=== PATIENT | male | born 1980 | race Caucasian/White ===

== ENCOUNTER 2017-02-04 15:19 | Emergency (ER) | payer MEDICAID ==
[~2017-02-04] VITALS: Ht 175.3 cm; Wt 68.7 kg
[~2017-02-04 15:19] MED LIST: HYDR-3240 PO; LITH600C PO; PANT20TA3 PO; SERT100T PO; ZOLP10TA PO
[2017-02-04 16:34] LABS: BLOOD UREA NITROGEN 12 mg/dL (7-18)
[2017-02-04 16:39] LABS: ASPARTATE AMINO TRANSFERASE 24 U/L (15-37)
[2017-02-04 18:18] VITALS: BP 128/68
== END 2017-02-04 18:20 ==
LOC: ED 16:26
DX: M79.661 Pain in right lower leg (principal); M25.561 Pain in right knee; M79.89 Other specified soft tissue disorders; F31.9 Bipolar disorder, unspecified; F90.9 Attention-deficit hyperactivity disorder, unspecified type; Z87.11 Personal history of peptic ulcer disease; Z90.89 Acquired absence of other organs; Z98.890 Other specified postprocedural states
CPT/HCPCS: 36415; 80053; 85025; 93005; 99285

== ENCOUNTER 2017-02-06 03:27 | Emergency (ER) | payer MEDICAID ==
[~2017-02-06] VITALS: Ht 170.2 cm; Wt 60.0 kg
[2017-02-06 05:39] VITALS: BP 134/75
== END 2017-02-06 05:40 | disposition home or self-care (01) ==
LOC: ED 04:34
DX: M79.661 Pain in right lower leg (principal); F90.9 Attention-deficit hyperactivity disorder, unspecified type
CPT/HCPCS: 99284

== ENCOUNTER 2017-04-15 19:24 | Emergency (ER) | payer MEDICAID ==
[~2017-04-15] VITALS: Ht 175.3 cm; Wt 67.5 kg
[2017-04-15 19:36] VITALS: BP 119/74
== END 2017-04-15 21:17 | disposition home or self-care (01) ==
LOC: ED 20:27
DX: S63.634A Sprain of interphalangeal joint of right ring finger, initial encounter (principal); Z86.718 Personal history of other venous thrombosis and embolism; F17.210 Nicotine dependence, cigarettes, uncomplicated; W22.8XXA Striking against or struck by other objects, initial encounter; Y93.89 Activity, other specified; Y92.009 Unspecified place in unspecified non-institutional (private) residence as the place of occurrence of the external cause; Y99.9 Unspecified external cause status
CPT/HCPCS: 29125; 99284

== ENCOUNTER 2017-07-03 20:40 | Emergency (ER) | payer MEDICAID ==
[~2017-07-03] VITALS: Ht 175.3 cm; Wt 66.0 kg
[2017-07-03 20:43] VITALS: BP 105/70
[2017-07-03] MEDS ORDERED: BACITRACIN ZINC OINT 500U/GM, 0.9 GM ONE (21:53)
== END 2017-07-03 22:12 | disposition home or self-care (01) ==
LOC: ED 22:00
DX: S61.211A Laceration without foreign body of left index finger without damage to nail, initial encounter (principal); F31.9 Bipolar disorder, unspecified; F90.9 Attention-deficit hyperactivity disorder, unspecified type; Z88.0 Allergy status to penicillin; W26.0XXA Contact with knife, initial encounter; Y93.89 Activity, other specified; Y92.098 Other place in other non-institutional residence as the place of occurrence of the external cause; Y99.8 Other external cause status
CPT/HCPCS: 12001; 99283

== ENCOUNTER 2017-07-10 14:52 | Emergency (ER) | payer MEDICAID ==
[~2017-07-10] VITALS: Ht 175.3 cm; Wt 66.7 kg
[2017-07-10 14:55] VITALS: BP 120/74
== END 2017-07-10 15:53 | disposition home or self-care (01) ==
LOC: ED 15:50
DX: S61.211A Laceration without foreign body of left index finger without damage to nail, initial encounter (principal); L03.90 Cellulitis, unspecified; F90.9 Attention-deficit hyperactivity disorder, unspecified type; Z86.718 Personal history of other venous thrombosis and embolism
CPT/HCPCS: 99283

== ENCOUNTER 2017-07-13 16:59 | Emergency (ER) | payer MEDICAID ==
[~2017-07-13] VITALS: Ht 175.3 cm; Wt 66.9 kg
[2017-07-13 17:08] VITALS: BP 126/78
[2017-07-13] MEDS ORDERED: ONDANSETRON ODT 4 MG ONE (17:23)
[2017-07-13] MEDS ORDERED: ONDANSETRON ODT 8 MG PO ONE (17:30)
== END 2017-07-13 17:44 | disposition home or self-care (01) ==
LOC: ED 17:20
DX: L03.012 Cellulitis of left finger (principal); F90.9 Attention-deficit hyperactivity disorder, unspecified type; Z86.718 Personal history of other venous thrombosis and embolism; Z88.0 Allergy status to penicillin; F17.200 Nicotine dependence, unspecified, uncomplicated
CPT/HCPCS: 29130; 99283; Q0162

== ENCOUNTER 2017-07-23 14:34 | Emergency (ER) | payer MEDICAID ==
[~2017-07-23] VITALS: Ht 175.3 cm; Wt 67.6 kg
[2017-07-23] MEDS ORDERED: ONDANSETRON ODT 4 MG ONE (15:20)
[2017-07-23] MEDS ORDERED: KETOROLAC 30 MG/1 ML IVPush ONE (15:30)
[2017-07-23] MEDS ORDERED: SODIUM CHLORIDE FLUSH 10ML SYR IVF ONE (15:30)
[2017-07-23] MEDS ORDERED: ONDANSETRON ODT 4 MG PO ONE (15:30)
[2017-07-23] MEDS ORDERED: DIPHENHYDRAMINE 50 MG/ML, 1ML IVPush ONE (15:30)
[2017-07-23] MEDS ORDERED: SODIUM CHLORIDE 0.9% 1,000ML IVBOLUS ONE (15:30)
[2017-07-23 16:02] LABS: ASPARTATE AMINO TRANSFERASE 18 U/L (15-37); BLOOD UREA NITROGEN 11 mg/dL (7-18)
[2017-07-23 16:08] LABS: HEMATOCRIT 51.8 % (39.2-51.8); HEMOGLOBIN 17.6 g/dL (13.7-18.0); WHITE BLOOD COUNT 8.3 x10^3/uL (3.4-10)
[2017-07-23] MEDS ORDERED: KETOROLAC 30 MG/1 ML ONE (17:03)
[2017-07-23] MEDS ORDERED: DIPHENHYDRAMINE 50 MG/ML, 1ML ONE (17:03)
[2017-07-23 18:10] VITALS: BP 128/76
== END 2017-07-23 18:49 | disposition home or self-care (01) ==
LOC: ED 18:37
DX: G44.209 Tension-type headache, unspecified, not intractable (principal); J01.01 Acute recurrent maxillary sinusitis; F31.9 Bipolar disorder, unspecified; F90.9 Attention-deficit hyperactivity disorder, unspecified type; Z90.89 Acquired absence of other organs
CPT/HCPCS: 36415; 80053; 81003; 85025; 93005; 96361; 96374; 96375; 99285; J1200; J1885; J7030; Q0162

== ENCOUNTER 2017-07-30 01:51 | Emergency (ER) | payer MEDICAID ==
[~2017-07-30] VITALS: Ht 175.3 cm; Wt 67.8 kg
[2017-07-30] MEDS ORDERED: ALBU5SOL6 INH (02:27)
[2017-07-30] MEDS ORDERED: LEVO500T47 PO (02:27)
[2017-07-30 02:31] LABS: HEMATOCRIT 47.5 % (39.2-51.8); HEMOGLOBIN 16.2 g/dL (13.7-18.0); WHITE BLOOD COUNT 7.5 x10^3/uL (3.4-10)
[2017-07-30 02:43] LABS: ASPARTATE AMINO TRANSFERASE 19 U/L (15-37); BLOOD UREA NITROGEN 14 mg/dL (7-18)
[2017-07-30 03:28] VITALS: BP 130/80
== END 2017-07-30 03:30 | disposition home or self-care (01) ==
LOC: ED 02:07
DX: H60.502 Unspecified acute noninfective otitis externa, left ear (principal); R11.0 Nausea; R51 Headache
CPT/HCPCS: 36415; 74020; 80053; 83690; 85025; 99285

== ENCOUNTER 2017-08-23 05:50 | Day surgery (SDC) | payer MEDICAID ==
[~2017-08-23] VITALS: Ht 175.3 cm; Wt 63.0 kg
[~2017-08-23 05:50] MED LIST changes: +ALBU5SOL6 INH; +LEVO500T47 PO
[2017-08-23 06:09] VITALS: BP 115/81
[2017-08-23] MEDS ORDERED: LACTATED RINGERS 1,000 ML IV SCH (06:12)
[2017-08-23] MEDS ORDERED: EPINEPHRINE TOPICAL SOLN 1 MG/ML, 30ML ONE (07:04)
[2017-08-23] MEDS ORDERED: LIDOCAINE/PF 1%, 30ML ONE (07:04)
[2017-08-23] MEDS ORDERED: FLUORESCEIN OPHTHALMIC 1 MG STRIP ONE (07:05)
[2017-08-23] MEDS ORDERED: EPINEPHRINE 1 MG/ML, 1ML ONE (07:05)
[2017-08-23] MEDS ORDERED: BACITRACIN OINT 500U/GM, 15 GM ONE (07:05)
[2017-08-23] MEDS ORDERED: OXYMETAZOLINE NASAL SPRAY 0.05%, 15ML ONE (07:05)
[2017-08-23] MEDS ORDERED: SODIUM CHLORIDE 0.9% 100 ML ONE (07:45)
[2017-08-23] MEDS ORDERED: VANCOMYCIN 1,000 MG ONE (07:45)
[2017-08-23] MEDS ORDERED: MIDAZOLAM 1 MG/ML, 2ML ONE (07:50)
[2017-08-23] MEDS ORDERED: PROPOFOL 10 MG/ML, 20ML ONE (07:51)
[2017-08-23] MEDS ORDERED: SUFentanil 50 MCG/ML, 1ML ONE (07:51)
[2017-08-23] MEDS ORDERED: SUCCINYLCHOLINE 20 MG/ML, 10ML ONE (07:52)
[2017-08-23] MEDS ORDERED: PHENYLEPHRINE 10 MG/ML ONE (08:10)
[2017-08-23] MEDS ORDERED: DEXAMETHASONE 4 MG/ML, 1ML ONE ×2 (08:14)
[2017-08-23] MEDS ORDERED: CLINDAMYCIN 150 MG/ML, 6ML ONE (08:22)
[2017-08-23] MEDS ORDERED: MEPERIDINE/PF 25MG/0.5ML IVPush PRN (09:00)
[2017-08-23] MEDS ORDERED: FENTANYL PF 100 MCG/2ML IV PRN (09:00)
[2017-08-23] MEDS ORDERED: PROMETHAZINE 25 MG/ML, 1ML IV PRN (09:00)
[2017-08-23] MEDS ORDERED: LABETALOL 5MG/ML, 20ML IV PRN (09:00)
[2017-08-23] MEDS ORDERED: ALBUTEROL SULFATE 2.5 MG/3 ML NPPB PRN (09:00)
[2017-08-23] MEDS ORDERED: hydrALAzine 20 MG/ML, 1ML IV PRN (09:00)
[2017-08-23] MEDS ORDERED: OXYcodone 5 MG/5 ML ORAL.SOL UDC PO PRN (09:00)
[2017-08-23] MEDS ORDERED: HYDROmorphone 1 MG/ML, 1ML IV PRN (09:00)
[2017-08-23] MEDS ORDERED: ACETAMINOPHEN 325 MG TABLET PO PRN (09:00)
[2017-08-23] MEDS ORDERED: ONDANSETRON 2MG/ML, 2ML IVPush PRN (09:00)
[2017-08-23] MEDS ORDERED: LORazepam 2 MG/ML, 1ML IVPush PRN (09:00)
[2017-08-23] MEDS ORDERED: ONDANSETRON 2MG/ML, 2ML ONE (09:45)
[2017-08-23] MEDS ORDERED: FENTANYL PF 100 MCG/2ML ONE (10:50)
[2017-08-23] MEDS ORDERED: ACETAMINOPHEN 650 MG/20.3 ML UDC ONE (10:50)
[2017-08-23] MEDS ORDERED: OXYcodone 5 MG/5 ML ORAL.SOL UDC ONE (10:51)
[2017-08-23] MEDS ORDERED: ACETAMINOPHEN 325 MG TABLET ONE (10:51)
[2017-08-23] MEDS ORDERED: PROMETHAZINE 25 MG/ML, 1ML ONE (11:01)
== END 2017-08-23 12:25 ==
LOC: OUT 05:50
PROVIDERS: ATTEND Otolaryngology
DX: J34.2 Deviated nasal septum (principal); J32.9 Chronic sinusitis, unspecified; J32.2 Chronic ethmoidal sinusitis; J45.909 Unspecified asthma, uncomplicated; Z88.0 Allergy status to penicillin; Z88.8 Allergy status to other drugs, medicaments and biological substances
CPT/HCPCS: 30520; 31240; 31255; 31256; 31276; 31287; 61782; 70486; 88304; 88305; 88331; J0171; J0330; J1100; J2250; J2370; J2405; J2550; J2704; J3010; J3370; J3490; J7120

== ENCOUNTER → 2017-08-31 | Outpatient (CLI) | payer MEDICAID | END | disposition home or self-care (01) | LOC: PETCFH 08:29 | PROVIDERS: ATTEND Internal Medicine Gastroenterology | DX: K58.9 Irritable bowel syndrome, unspecified (principal); Z88.0 Allergy status to penicillin | CPT/HCPCS: 78227; A9537 ==

== ENCOUNTER → 2018-02-27 | Outpatient (CLI) | payer MEDICAID ==
[~2018-02-27] MED LIST changes: +ONDA4TAB10 PO
== END ==
LOC: PETCFH 09:10
PROVIDERS: ATTEND Physician Assistant Medical
DX: K30 Functional dyspepsia (principal); F31.9 Bipolar disorder, unspecified
CPT/HCPCS: 78264; A9541

== ENCOUNTER 2018-05-10 16:21 | Emergency (ER) | payer MEDICAID ==
[~2018-05-10] VITALS: Ht 175.3 cm; Wt 69.9 kg
[2018-05-10 16:27] VITALS: BP 108/71
[2018-05-10] MEDS ORDERED: ACETAMINOPHEN 325 MG TABLET PO ONE (18:30)
[2018-05-10] MEDS ORDERED: ACETAMINOPHEN 325 MG TABLET ONE (18:33)
== END 2018-05-10 19:36 | disposition home or self-care (01) ==
LOC: ED 19:05
DX: M25.511 Pain in right shoulder (principal); M25.531 Pain in right wrist; F31.9 Bipolar disorder, unspecified; F90.9 Attention-deficit hyperactivity disorder, unspecified type; F17.200 Nicotine dependence, unspecified, uncomplicated; Z86.718 Personal history of other venous thrombosis and embolism
CPT/HCPCS: 29260; 99284

== ENCOUNTER 2018-09-26 23:58 | Emergency (ER) | payer MEDICAID ==
[~2018-09-26] VITALS: Ht 175.3 cm; Wt 73.5 kg
[2018-09-27] MEDS ORDERED: METOCLOPRAMIDE 5 MG/ML, 2ML IVPush ONE (00:30)
[2018-09-27] MEDS ORDERED: SODIUM CHLORIDE FLUSH 10ML SYR IVF ONE (00:30)
[2018-09-27] MEDS ORDERED: MORPHINE SULFATE 4 MG/ML, 1ML IVPush PRN (00:30)
[2018-09-27] MEDS ORDERED: PROMETHAZINE 25 MG/ML, 1ML IM ONE (00:30)
[2018-09-27 00:36] LABS: BASOPHILS # (AUTO) 0.07 x10^3/uL (0-0.1); BASOPHILS % (AUTO) 1 % (0-1); EOSINOPHILS # (AUTO) 0.27 x10^3/uL (0-0.4); EOSINOPHILS % (AUTO) 5 % (1-7); LYMPHOCYTES # (AUTO) 1.99 x10^3/uL (1-3.4); LYMPHOCYTES % (AUTO) 33 % (22-44); MD NO; MEAN CORPUSCULAR HGB CONC 34.9 g/dL (33.2-36.2); MEAN CORPUSCULAR VOLUME 94.3 fL (81-97); MEAN PLATELET VOLUME 9.6 fL (7.4-10.4); MONOCYTES # (AUTO) 1.05 x10^3/uL (0.2-0.8); MONOCYTES % (AUTO) 18 % (2-9); NEUTROPHILS # (AUTO) 2.57 x10^3/uL (1.8-6.8); NEUTROPHILS % (AUTO) 43 % (42-75); PLATELET COUNT 209 x10^3/uL (130-400); RED BLOOD COUNT 4.81 x10^6/uL (4.38-5.82); RED CELL DISTRIBUTION WIDTH 12.9 % (9.4-14.8)
[2018-09-27] MEDS ORDERED: MORPHINE SULFATE 4 MG/ML, 1ML ONE (00:39)
[2018-09-27] MEDS ORDERED: METOCLOPRAMIDE 5 MG/ML, 2ML ONE (00:39)
[2018-09-27] MEDS ORDERED: PROMETHAZINE 25 MG/ML, 1ML ONE (00:39)
[2018-09-27 00:45] LABS: ALANINE AMINOTRANSFERASE 22 U/L (12-78); ALBUMIN 3.9 g/dL (3.4-5.0); ANION GAP 7 mmol/L (5-15); CALCIUM 8.7 mg/dL (8.5-10.1); CHLORIDE 109 mmol/L (98-107); CREATININE 1.18 mg/dL (0.7-1.3)
[2018-09-27 00:47] LABS: ALKALINE PHOSPHATASE 89 U/L (45-117); BILIRUBIN,TOTAL 0.4 mg/dL (0.2-1.0); TOTAL PROTEIN 6.8 g/dL (6.4-8.2)
[2018-09-27 01:14] LABS: MICROSCOPIC NOT IND
[2018-09-27 01:16] LABS: CULTURE INDICATED? NO
[2018-09-27 01:36] VITALS: BP 101/77
== END 2018-09-27 01:38 | disposition home or self-care (01) ==
LOC: ED 23:59
DX: G43.A1 Cyclical vomiting, in migraine, intractable (principal); E86.0 Dehydration; F17.200 Nicotine dependence, unspecified, uncomplicated
CPT/HCPCS: 36415; 80053; 81003; 83690; 85025; 96372; 96374; 96375; 99283; J2550; J2765

== ENCOUNTER 2018-11-28 19:15 | Emergency (ER) | payer MEDICAID ==
[~2018-11-28] VITALS: Ht 175.3 cm; Wt 69.6 kg
[2018-11-28 19:29] VITALS: BP 113/75
--- NOTE | 2018-11-28 20:34 | NUR ---
PT HERE FOR URI SYMPTOMS AND LEFT EAR PAIN.
--- NOTE | 2018-11-28 20:49 | NUR ---
Patient/Caregiver given discharge instructions and they have confirmed that they understand the instructions. Patient ambulatory with steady gait.
== END 2018-11-28 20:56 | disposition home or self-care (01) ==
LOC: ED 20:53
DX: H66.002 Acute suppurative otitis media without spontaneous rupture of ear drum, left ear (principal); B34.9 Viral infection, unspecified; F90.9 Attention-deficit hyperactivity disorder, unspecified type; F31.9 Bipolar disorder, unspecified
CPT/HCPCS: 99283

== ENCOUNTER 2019-03-10 22:29 | Emergency (ER) | payer MEDICAID ==
[~2019-03-10] VITALS: Ht 175.3 cm; Wt 66.6 kg
[~2019-03-10 22:29] MED LIST changes: +ANTACID; +METO10TA82 PO; +MIGRAINE MEDICATION
--- NOTE | 2019-03-10 22:51 | NUR ---
FIRST CONTACT WITH PT. PT STATES THAT HE HAS BEEN HAVING RIGHT SIDED FLANK PAIN X 1 WEEK. PT STATES PAIN IS WORSE WHEN HE DRINKS FLUIDS. PT'S AOX4. RESPS EVEN AND UNLABORED. BP/SPO2 MONITORS IN PLACE. CALL LIGHT WITHIN REACH. PA AT BEDSIDE TO ASSESS.
--- NOTE | 2019-03-10 22:51 | NUR ---
PT IS NOT ABLE TO PROVIDE URINE SAMPLE AT THIS TIME. URINE CUP AT BEDSIDE.
[2019-03-10 23:05] LABS: BASOPHILS # (AUTO) 0.04 x10^3/uL (0-0.1); BASOPHILS % (AUTO) 1 % (0-1); EOSINOPHILS # (AUTO) 0.12 x10^3/uL (0-0.4); EOSINOPHILS % (AUTO) 2 % (1-7); LYMPHOCYTES # (AUTO) 1.91 x10^3/uL (1-3.4); LYMPHOCYTES % (AUTO) 33 % (22-44); MD NO; MEAN CORPUSCULAR HEMOGLOBIN 31.8 pg (27.5-34.5); MEAN CORPUSCULAR HGB CONC 33.6 g/dL (33.2-36.2); MEAN CORPUSCULAR VOLUME 94.6 fL (81-97); MEAN PLATELET VOLUME 9.2 fL (7.4-10.4); MONOCYTES # (AUTO) 0.45 x10^3/uL (0.2-0.8); MONOCYTES % (AUTO) 8 % (2-9); NEUTROPHILS # (AUTO) 3.23 x10^3/uL (1.8-6.8); NEUTROPHILS % (AUTO) 56 % (42-75); PLATELET COUNT 197 x10^3/uL (130-400); RED BLOOD COUNT 4.84 x10^6/uL (4.38-5.82); RED CELL DISTRIBUTION WIDTH 14.1 % (9.4-14.8)
--- NOTE | 2019-03-10 23:16 | NUR ---
PT AMB TO BR AND BACK TO ROOM. UA SENT.
[2019-03-10 23:17] LABS: ALANINE AMINOTRANSFERASE 20 U/L (12-78); ALBUMIN 3.7 g/dL (3.4-5.0); ANION GAP 7 mmol/L (5-15); CALCIUM 8.4 mg/dL (8.5-10.1); CHLORIDE 108 mmol/L (98-107); CREATININE 1.07 mg/dL (0.7-1.3)
[2019-03-10 23:20] LABS: ALKALINE PHOSPHATASE 80 U/L (45-117); BILIRUBIN,TOTAL 0.2 mg/dL (0.2-1.0); TOTAL PROTEIN 6.4 g/dL (6.4-8.2)
[2019-03-10 23:24] LABS: MICROSCOPIC NOT IND
[2019-03-10 23:26] LABS: CULTURE INDICATED? NO
[2019-03-10 23:39] VITALS: BP 113/80
--- NOTE | 2019-03-10 23:39 | NUR ---
PT RESTING IN [facility]. PT'S AOX4. RESPS EVEN AND UNLABORED. BP/SPO2 MONITORS IN PLACE. CALL LIGHT WITHIN REACH.
--- NOTE | 2019-03-11 00:46 | NUR ---
PT GIVEN DC INSTRUCTIONS. PT'S AOX4. RESPS EVEN AND UNLABORED. PT AMB TO DC WITH STEADY GAIT. NO ACUTE DISTRESS AT DC.
== END 2019-03-11 00:47 | disposition home or self-care (01) ==
LOC: ED 23:02
DX: K29.00 Acute gastritis without bleeding (principal); F31.9 Bipolar disorder, unspecified; F90.9 Attention-deficit hyperactivity disorder, unspecified type; F98.8 Other specified behavioral and emotional disorders with onset usually occurring in childhood and adolescence; Z87.11 Personal history of peptic ulcer disease
CPT/HCPCS: 36415; 74022; 80053; 81003; 83690; 85025; 99284